=== PATIENT | female | born 1940 | race Caucasian/White ===

== ENCOUNTER 2025-09-01 13:36 | Day surgery (SDC) | payer MEDICARE ==
[2025-09-01] MEDS ORDERED: LIDOCAINE HCL 1% 50 MG/5 ML VL IJ ONE (13:37)
[2025-09-01] MEDS ORDERED: BUPIVACAINE 0.5% VIAL IJ ONE (13:37)
[2025-09-01] MEDS ORDERED: Lactated Ringers 1,000 ML IV ONE (17:06)
--- NOTE | 2025-09-02 08:39 | XRAY ---
Indication: Left L4-S1 RFA. Intraoperative fluoroscopy provided for 17 seconds. 3 digital spot images submitted for interpretation demonstrates posterior needle tips projecting over expected left L4-S1 nerve roots. Correlate with intraoperative findings/report.
--- NOTE | 2025-09-02 09:35 | XRAY ---
17 seconds of fluoroscopy was used in surgery for a left L4-S1 RFA.
== END 2025-09-01 17:20 | disposition home or self-care (01) ==
LOC: SDC-PAIN 13:36
PROVIDERS: ATTEND Psychiatry & Neurology Pain Medicine
DX: M47.817 Spondylosis without myelopathy or radiculopathy, lumbosacral region (principal)

== ENCOUNTER 2025-09-15 13:24 | Day surgery (SDC) | payer MEDICARE ==
[2025-09-15] MEDS ORDERED: LIDOCAINE HCL 1% 50 MG/5 ML VL IJ ONE (13:25)
[2025-09-15] MEDS ORDERED: BUPIVACAINE 0.5% VIAL IJ ONE (13:25)
[2025-09-15] MEDS ORDERED: propofoL IV ONE (15:25)
[2025-09-15] MEDS ORDERED: Lactated Ringers 1,000 ML IV ONE (15:48)
--- NOTE | 2025-09-15 16:47 | XRAY ---
Indication: Right L4-S1 RFA. Intraoperative fluoroscopy provided for 20 seconds. 3 digital spot image submitted for interpretation demonstrates posterior needle tips projecting over expected right L4-S1 nerve roots. Correlate with intraoperative findings/report.
--- NOTE | 2025-09-15 16:49 | XRAY ---
20 seconds of fluoroscopy was used in surgery for a right L4-S1 RFA.
== END 2025-09-15 16:01 | disposition home or self-care (01) ==
LOC: SDC-PAIN 13:24
PROVIDERS: ATTEND Psychiatry & Neurology Pain Medicine
DX: M47.817 Spondylosis without myelopathy or radiculopathy, lumbosacral region (principal)